=== PATIENT | female | born 1990 | race African-American/Black ===

== ENCOUNTER 2019-09-13 17:07 | Emergency (ER) | payer MEDICAID ==
--- NOTE | 2019-09-13 17:28 | Emergency Department Report ---
Blank Doc - Documentation Documentation: 29-year-old female that presents with syncopal episode and dizziness and weakn ess. This initial assessment/diagnostic orders/clinical plan/treatment(s) is/are subject to change based on patient's health status, clinical progression and re- assessment by fellow clinical providers in the ED. Further treatment and workup at subsequent clinical providers discretion. Patient/guardians urged not to elope from the ED as their condition may be serious if not clinically assessed a nd managed. Initial orders include: 1- Patient sent to [facility] for further evaluation and treatment 2- labs 3- UA
[2019-09-13 18:56] LABS: Alanine Aminotransferase 13 units/L (7-56); Albumin 4.4 g/dL (3.9-5); BUN/Creatinine Ratio 16; Blood Urea Nitrogen 8 mg/dL (7-17); Calcium 8.7 mg/dL (8.4-10.2); Hemolysis Index 5
[2019-09-13 19:09] LABS: Basophils % (Auto) 0.6 % (0.0-1.8); Eosinophils # (Auto) 0.2 K/mm3 (0.0-0.4); Eosinophils % (Auto) 2.3 % (0.0-4.3); Hematocrit 34.7 % (30.3-42.9); Hemoglobin 11.1 gm/dl (10.1-14.3); Lymphocytes # (Auto) 1.3 K/mm3 (1.2-5.4); Lymphocytes % (Auto) 17.7 % (13.4-35.0); Mean Corpuscular HGB Conc 32 % (30-34); Mean Corpuscular Volume 73 fl (79-97); Monocytes # (Auto) 0.4 K/mm3 (0.0-0.8); Monocytes % (Auto) 4.9 % (0.0-7.3); Platelet Count 306 K/mm3 (140-440); Red Blood Count 4.75 M/mm3 (3.65-5.03); Red Cell Distribution Width 15.1 % (13.2-15.2)
[2019-09-13] MEDS ORDERED: NACL 0.9% 1000 ML 1,000 ML IV ONE (20:03)
--- NOTE | 2019-09-13 20:39 | Cat Scan Report ---
Exam: CT cervical spine History: Syncope; Technique: Contiguous thin cut axial images obtained through the cervical spine. Sagittal and benitez l reconstructions performed by the technologist. All CT scans at this location are performed using CT dose reduction for ALARA by means of automated exposure control. Findings: No priors. Mild straightening of cervical lordosis seen. Contour of the vertebral bodies and alignment are melissa l. Neuroforamina and central canal are normal. Intervertebral disc spaces are well-maintained. No significant degenerative change seen in the uncinate or facet joints. Surrounding soft tissues are grossly normal. Impression: Normal CT scan of the cervical spine. Signer Name: Ivette Jennings MD Signed: 09/13/2019 8:34 PM Workstation Name: [id number]
[2019-09-13 20:43] LABS: Bilirubin,Urine NEG (Negative); Blood,Urine NEG (Negative); Color,Urine Yellow (Yellow); Mucus,Urine FEW /HPF; Protein,Urine <15 mg/dL mg/dL (Negative); Urobilinogen,Urine < 2.0 mg/dL (<2.0)
--- NOTE | 2019-09-13 20:49 | Emergency Department Report ---
ED General Adult HPI - General Chief complaint: Weakness Stated complaint: BODY PAINS Time Seen by Provider: 09/13/19 17:27 Source: patient Mode of arrival: Ambulatory Limitations: No Limitations - History of Present Illness Initial comments: Patient is a 29-year-old female presents emergency room with complaints of generalized body aches that began this afternoon. States she had associated lightheadedness and chills/diaphoresis. she states that she felt lightheaded and had to sit down but had no complete syncope and did not hit her head. she denies any neck pain. Denies any nausea, vomiting, diarrhea, fever, recent illness. - Related Data Allergies Allergy/AdvReac Type Severity Reaction Status Date / Time cephalexin [From Keflex] Allergy Unknown Verified 09/13/19 17:29 ED Review of Systems ROS: Stated complaint: BODY PAINS Other details as noted in HPI ED Past Medical Hx - Past Medical History Previous Medical History?: Yes Additional medical history: anemia - Surgical History Past Surgical History?: No - Social History Smoking Status: Never Smoker Substance Use Type: None ED Physical Exam - General Limitations: No Limitations ED Course Vital Signs 09/13/19 09/13/19 17:27 19:14 Temperature 98.2 F Pulse Rate 83 Pulse Rate [ 64 Sitting] Respiratory 18 Rate Blood Pressure 93/59 Blood Pressure 110/60 [Sitting] O2 Sat by Pulse 99 Oximetry ED Medical Decision Making - Lab Data Result diagrams: 09/13/19 18:17 09/13/19 18:17 Labs 09/13/19 09/13/19 09/13/19 18:17 18:17 18:17 WBC 7.6 RBC 4.75 Hgb 11.1 Hct 34.7 MCV 73 L MCH 23 L MCHC 32 RDW 15.1 Plt Count 306 Lymph % (Auto) 17.7 [place] % (Auto) 4.9 Eos % (Auto) 2.3 Baso % (Auto) 0.6 Lymph # 1.3 [place] # 0.4 Eos # 0.2 Baso # 0.0 Seg Neutrophils % 74.5 H Seg Neutrophils # 5.6 Sodium 141 Potassium 4.4 Chloride 106.1 Carbon Dioxide 22 Anion Gap 17 BUN 8 Creatinine 0.5 L Estimated GFR > 60 BUN/Creatinine Ratio 16 Glucose 112 H Calcium 8.7 Total Bilirubin 0.20 AST 20 ALT 13 Alkaline Phosphatase 64 Troponin T Total Protein 7.6 Albumin 4.4 Albumin/Globulin Ratio 1.4 HCG, Qual Negative Urine Color Urine Turbidity Urine pH Ur Specific [place] Urine Protein Urine Glucose (UA) Urine Ketones Urine Blood Urine Nitrite Urine Bilirubin Urine Urobilinogen Ur Leukocyte Esterase Urine WBC (Auto) Urine RBC (Auto) U Epithel Cells (Auto) Urine Mucus Influenza A (Rapid) Influenza B (Rapid) 09/13/19 09/13/19 09/13/19 20:06 Unknown Unknown WBC RBC Hgb Hct MCV MCH MCHC RDW Plt Count Lymph % (Auto) [place] % (Auto) Eos % (Auto) Baso % (Auto) Lymph # [place] # Eos # Baso # Seg Neutrophils % Seg Neutrophils # Sodium Potassium Chloride Carbon Dioxide Anion Gap BUN Creatinine Estimated GFR BUN/Creatinine Ratio Glucose Calcium Total Bilirubin AST ALT Alkaline Phosphatase Troponin T < 0.010 Total Protein Albumin Albumin/Globulin Ratio HCG, Qual Urine Color Yellow Urine Turbidity Clear Urine pH 8.0 H Ur Specific [place] 1.017 Urine Protein <15 mg/dl Urine Glucose (UA) Neg Urine Ketones Neg Urine Blood Neg Urine Nitrite Neg Urine Bilirubin Neg Urine Urobilinogen < 2.0 Ur Leukocyte Esterase Neg Urine WBC (Auto) < 1.0 Urine RBC (Auto) < 1.0 U Epithel Cells (Auto) < 1.0 Urine Mucus Few Influenza A (Rapid) Negative Influenza B (Rapid) Negative - EKG Data EKG shows normal: sinus rhythm, axis, intervals, ST-T waves Rate: normal - EKG Data 09/14/19 03:58 non specific Q waves in V1, V2 no STEMI - Radiology Data Radiology results: report reviewed cc: LIBORIO SPANN NP Exam: CT cervical spine History: Syncope; Technique: Contiguous thin cut axial images obtained through the cervical spine. Sagittal and coronal reconstructions performed by the technologist. All CT scans at this location are performed using CT dose reduction for ALARA by means of automated exposure control. Findings: No priors. Mild straightening of cervical lordosis seen. Contour of the vertebral bodies and alignment are normal. Neuroforamina and central canal are normal. Intervertebral disc spaces are well-maintained. No significant degenerative change seen in the uncinate or facet joints. Surrounding soft tissues are grossly normal. Impression: Normal CT scan of the cervical spine. Signer Name: Ivette Jennings MD Signed: 09/13/2019 8:34 PM Workstation Name: [id number] Transcribed By: BS Dictated By: Ivette Santos MD Electronically Authenticated By: Ivette Santos MD Signed Date/Time: 09/13/192033 - Medical Decision Making Patient is a 29-year-old female presents emergency room with complaints of generalized body aches that began this afternoon. States she had associated lightheadedness and chills/diaphoresis. she states that she felt lightheaded and had to sit down but had no complete syncope and did not hit her head. she denies any neck pain. Denies any nausea, vomiting, diarrhea, fever, recent illness. initial vitals with hypotension which improved upon 1L of NS. no or thostatic hypotension. labs are stable. UA is normal. influenza is negative. CT neck ordered from triage prior to my examination and shows: Normal CT scan of the cervical spine. pt states she feels much better after IVF. advised pt to please increase your water intake. Please follow-up with a primary care doctor in the next 2-3 days for reexamination. Return to the emergency room for any new or worsening symptoms. - Differential Diagnosis hypotension, orthostatic hypotension, anemia, flu, viral syndrome, arrhythm Critical care attestation.: If time is entered above; I have spent that time in minutes in the direct care of this critically ill patient, excluding procedure time. ED Disposition Clinical Impression: Generalized body aches, Chills Hypotension Qualifiers: Hypotension type: unspecified hypotension type Qualified Code(s): I95.9 - Hypotension, unspecified Disposition: DC-01 TO HOME OR SELFCARE Is pt being admited?: No Does the pt Need Aspirin: No Condition: Stable Instructions: Hypotension (ED), Near Syncope (ED), Lightheadedness (ED) Additional Instructions: Please increase your water intake. Please follow-up with a primary care doctor in the next 2-3 days for reexamination. Return to the emergency room for any new or worsening symptoms. Referrals: [facility] [Provider Group] - 2-3 Days Forms: Work/School Release Form(ED) Time of Disposition: 22:00 Print Language: CHINESE
[2019-09-13 21:15] LABS: RBC,Urine < 1.0 /HPF (0.0-6.0); WBC,Urine < 1.0 /HPF (0.0-6.0)
[2019-09-13 22:32] VITALS: BP 110/60
== END 2019-09-13 22:10 | disposition home or self-care (01) ==
LOC: ED 17:07
DX: M79.10 Myalgia, unspecified site (principal); R42 Dizziness and giddiness; R68.83 Chills (without fever); I10 Essential (primary) hypertension; D64.9 Anemia, unspecified; Z88.1 Allergy status to other antibiotic agents
CPT/HCPCS: 36415; 72125; 80053; 81001; 84484; 84703; 85025; 87400; 93005; 93010; 96360; 99284; J7030